=== PATIENT | female | born 1955 | race Hispanic/Latino ===

== ENCOUNTER 2018-08-02 07:18 | Observation (INO) | payer OTHER ==
[~2018-08-02] VITALS: Ht 160 cm; Wt 80.6 kg
[~2018-08-02 07:18] MED LIST: ALPR0.255 PO; DILT120T15 PO; IMIP10TA5 PO; LOSA1TAB42 PO; SIMV10TA6 PO
[2018-08-02] MEDS ORDERED: ONDANSETRON HCL 4 MG/2 ML VIAL ONE (07:44)
[2018-08-02 07:52] LABS: BASOPHILS % (AUTO) 0.2 % (0.0-5.0); EOSINOPHILS % (AUTO) 3.7 % (0.0-8.0); HEMATOCRIT 31.7 % (36-48); LYMPHOCYTES % (AUTO) 43.4 % (21.0-51.0); MEAN CORPUSCULAR HEMOGLOBIN 27.6 pg (27.0-33.0); MEAN CORPUSCULAR HGB CONC 33.2 g/dL (32.0-36.0); MONOCYTES % (AUTO) 43.3 % (3.0-13.0); NEUTROPHILS % (AUTO) 9.4 % (40.0-77.0); NUCLEATED RED BLOOD CELLS 0.1 % (0.0-0.19); PLATELET COUNT (AUTO) 288 K/uL (130-400); RED BLOOD CELL COUNT(AUTO) 3.82 MIL/uL (4.00-5.50); RED CELL DISTRIBUTION WIDTH 14.4 % (11.0-15.5)
[2018-08-02 08:04] LABS: POTASSIUM 3.1 mmol/L (3.5-5.1)
[2018-08-02 08:08] LABS: ALBUMIN 3.1 g/dL (3.5-5.0); BILIRUBIN,DIRECT 0.2 mg/dL (0.0-0.3); BILIRUBIN,TOTAL 0.5 mg/dL (0.2-1.0); TOTAL PROTEIN, SERUM 6.5 g/dL (6.0-8.3)
[2018-08-02 08:26] LABS: RAPID GROUP A STREP NEGATIVE (NEGATIVE)
[2018-08-02 10:29] LABS: APPEARANCE,URINE SL CLOUDY (CLEAR); BILIRUBIN,URINE NEGATIVE (NEGATIVE); COLOR,URINE YELLOW (YELLOW); GLUCOSE, URINE (UA) NEGATIVE (NEGATIVE); KETONES,URINE NEGATIVE (NEGATIVE); LEUKOCYTE ESTERASE ,URINE SMALL (NEGATIVE); NITRATE,URINE POSITIVE (NEGATIVE); OCCULT BLOOD,URINE NEGATIVE (NEGATIVE); PH,URINE 5.5 (5.0-8.0); PROTEIN,URINE NEGATIVE (NEGATIVE); UROBILINOGEN,URINE 0.2 mg/dL (0.2-1.0)
[2018-08-02 10:34] LABS: BACTERIA,URINE Many /HPF (None Seen); RBC,URINE 0-1 /HPF (0-1); SQUAMOUS EPITHELIAL CELL,UR Rare /HPF (0-2); TRANSITIONAL EPI CELLS,URINE Rare /HPF (None Seen)
[2018-08-02] MEDS ORDERED: ZOSYN 3.375GM+NS 50ML 50 ML IV ONE (11:45)
[2018-08-02 14:41] VITALS: BP 121/58
[2018-08-02] MEDS ORDERED: ERGO500014 PO (16:29)
[2018-08-02] MEDS ORDERED: ATOR20TA65 PO (16:29)
[2018-08-02] MEDS ORDERED: LEVO50 PO (16:29)
[2018-08-02 16:55] VITALS: BP 110/52
[2018-08-02] MEDS ORDERED: POTASSIUM CHLORIDE 20MEQ/100ML 100 ML IV PRN (17:00)
[2018-08-02] MEDS ORDERED: LIDOCAINE HCL-MPF 1% 2ML VIAL IVP PRN (17:00)
[2018-08-02] MEDS ORDERED: POTASSIUM CHLORIDE 10% ELIXIR 20 MEQ/15 ML UDCUP PO PRN (17:00)
[2018-08-02] MEDS: DILTIAZEM HCL 120 MG CAP.SR.24H PO SCH (17:00)
[2018-08-02] MEDS ORDERED: SODIUM CHLORIDE 0.9% 1000ML 1,000 ML IV SCH (17:15)
[2018-08-02] MEDS ORDERED: ONDANSETRON HCL 4 MG/2 ML VIAL IVP PRN (17:30)
[2018-08-02] MEDS: SODIUM CHLORIDE 0.9% 1000ML 1,000 ML IV SCH ×2 (17:30→22:04)
[2018-08-02] MEDS ORDERED: DIPHENOXYLATE HCL/ATROPINE 2.5/0.025 MG TAB PO PRN (18:30)
[2018-08-02] MEDS ORDERED: HYDROCODONE/ACETAMINOPHEN 5/325 MG TAB PO PRN (18:30)
[2018-08-02] MEDS ORDERED: PHARMACY COMMUNICATION MISC SCH (18:30)
[2018-08-02 19:54] VITALS: BP 126/55
[2018-08-02] MEDS: MAG HYDROX/AL HYDROX/SIMETH 30 ML, LIDOCAINE HCL 2% VISCOUS 30 ML, DIPHENHYDRAMINE HCL ... PO SCH ×3 (21:52)
[2018-08-02] MEDS: POTASSIUM CHLORIDE 20 MEQ ERTAB PO PRN (21:53)
[2018-08-02] MEDS: AMITRIPTYLINE HCL 10 MG TABLET PO SCH (21:53)
[2018-08-02] MEDS: ALPRAZOLAM 0.25 MG TABLET PO SCH (21:54)
[2018-08-02 23:14] VITALS: BP 114/60
[2018-08-03] MEDS: POTASSIUM CHLORIDE 20 MEQ ERTAB PO PRN (02:22)
[2018-08-03 03:51] VITALS: BP 101/51
[2018-08-03 04:49] LABS: HEMATOCRIT 30.2 % (36-48); MEAN CORPUSCULAR HEMOGLOBIN 26.8 pg (27.0-33.0); MEAN CORPUSCULAR HGB CONC 32.7 g/dL (32.0-36.0); MEAN CORPUSCULAR VOLUME 81.9 fL (79-99); NUCLEATED RED BLOOD CELLS 0.3 % (0.0-0.19); PLATELET COUNT (AUTO) 265 K/uL (130-400); RED BLOOD CELL COUNT(AUTO) 3.69 MIL/uL (4.00-5.50); RED CELL DISTRIBUTION WIDTH 14.2 % (11.0-15.5); WHITE BLOOD COUNT (AUTO) 5.8 K/uL (4.8-10.8)
[2018-08-03 05:02] LABS: ALBUMIN 2.4 g/dL (3.5-5.0); BILIRUBIN,TOTAL 0.6 mg/dL (0.2-1.0); CREATININE 0.9 mg/dL (0.5-1.5); MAGNESIUM 1.6 mg/dL (1.80-2.40); POTASSIUM 4.1 mmol/L (3.5-5.1); TOTAL PROTEIN, SERUM 5.7 g/dL (6.0-8.3)
[2018-08-03] MEDS ORDERED: MAGNESIUM 2GM PREMIX 50ML 50 ML IV PRN (06:30)
[2018-08-03] MEDS ORDERED: MAGNESIUM 2GM PREMIX 50ML 50 ML IV ONE (06:40)
[2018-08-03] MEDS: LEVOTHYROXINE 50 MCG TABLET PO SCH (06:42)
[2018-08-03 08:00] VITALS: BP 104/55
[2018-08-03] MEDS: ALPRAZOLAM 0.25 MG TABLET PO SCH ×2 (09:34→21:31)
[2018-08-03] MEDS: METRONIDAZOLE 500 MG TABLET PO SCH ×3 (09:34→20:24)
[2018-08-03] MEDS: ATORVASTATIN CALCIUM 20 MG TABLET PO SCH (09:34)
[2018-08-03] MEDS: AMITRIPTYLINE HCL 10 MG TABLET PO SCH ×2 (09:34→21:32)
[2018-08-03] MEDS: SODIUM CHLORIDE 0.9% 1000ML 1,000 ML IV SCH ×3 (09:41→23:30)
[2018-08-03 12:00] VITALS: BP 109/59
[2018-08-03 16:00] VITALS: BP 101/54
[2018-08-03 20:00] VITALS: BP 102/60
[2018-08-03] MEDS: MAG HYDROX/AL HYDROX/SIMETH 30 ML, LIDOCAINE HCL 2% VISCOUS 30 ML, DIPHENHYDRAMINE HCL ... PO SCH ×6 (20:24→21:32)
[2018-08-03] MEDS: DILTIAZEM HCL 120 MG CAP.SR.24H PO SCH (20:25)
[2018-08-04] VITALS: BP 97/49
[2018-08-04 04:00] VITALS: BP 97/55
[2018-08-04 04:48] LABS: HEMATOCRIT 26.8 % (36-48); MEAN CORPUSCULAR HEMOGLOBIN 27.1 pg (27.0-33.0); MEAN CORPUSCULAR HGB CONC 32.6 g/dL (32.0-36.0); MEAN CORPUSCULAR VOLUME 83.1 fL (79-99); NUCLEATED RED BLOOD CELLS 0.1 % (0.0-0.19); PLATELET COUNT (AUTO) 278 K/uL (130-400); RED BLOOD CELL COUNT(AUTO) 3.23 MIL/uL (4.00-5.50); RED CELL DISTRIBUTION WIDTH 14.7 % (11.0-15.5); WHITE BLOOD COUNT (AUTO) 14.8 K/uL (4.8-10.8)
[2018-08-04 05:00] LABS: CREATININE 0.8 mg/dL (0.5-1.5); MAGNESIUM 2.1 mg/dL (1.80-2.40); POTASSIUM 3.7 mmol/L (3.5-5.1)
[2018-08-04] MEDS: SODIUM CHLORIDE 0.9% 1000ML 1,000 ML IV SCH (05:02)
[2018-08-04] MEDS: LEVOTHYROXINE 50 MCG TABLET PO SCH (06:09)
[2018-08-04 07:00] VITALS: BP 106/62
[2018-08-04] MEDS ORDERED: LEVOFLOXACIN 500 MG/D5W 100 ML 100 ML IV SCH (09:00)
[2018-08-04] MEDS: ALPRAZOLAM 0.25 MG TABLET PO SCH (10:15)
[2018-08-04] MEDS: AMITRIPTYLINE HCL 10 MG TABLET PO SCH (10:15)
[2018-08-04] MEDS: METRONIDAZOLE 500 MG TABLET PO SCH (10:15)
[2018-08-04] MEDS: ATORVASTATIN CALCIUM 20 MG TABLET PO SCH (10:15)
[2018-08-04] MEDS: MAG HYDROX/AL HYDROX/SIMETH 30 ML, LIDOCAINE HCL 2% VISCOUS 30 ML, DIPHENHYDRAMINE HCL ... PO SCH ×3 (10:16)
[2018-08-04 11:00] VITALS: BP 113/60
[2018-08-09] MEDS ORDERED: ERGOCALCIFEROL (VITAMIN D2) 50,000 UNIT CAPSULE PO SCH (09:00)
== END 2018-08-04 16:30 | disposition home or self-care (01) ==
LOC: EDH 07:18 → EDHIP 11:08 → 3BH 13:55
PROVIDERS: ADMIT Family Medicine; ATTEND Family Medicine
DX: K12.1 Other forms of stomatitis (principal); E11.9 Type 2 diabetes mellitus without complications; M81.0 Age-related osteoporosis without current pathological fracture; E86.0 Dehydration; N39.0 Urinary tract infection, site not specified; E87.6 Hypokalemia; E83.42 Hypomagnesemia; C79.51 Secondary malignant neoplasm of bone; C79.89 Secondary malignant neoplasm of other specified sites; D64.81 Anemia due to antineoplastic chemotherapy; D70.1 Agranulocytosis secondary to cancer chemotherapy; K52.1 Toxic gastroenteritis and colitis; T45.1X5A Adverse effect of antineoplastic and immunosuppressive drugs, initial encounter; B96.89 Other specified bacterial agents as the cause of diseases classified elsewhere; Z80.3 Family history of malignant neoplasm of breast; Z96.649 Presence of unspecified artificial hip joint
CPT/HCPCS: 36415 ×3; 71045; 80048 ×2; 80053; 80076; 81001; 83690; 83735 ×2; 84100; 84484; 85025; 85027 ×2; 87040 ×2; 87046; 87077 ×2; 87088; 87177; 87186 ×2; 87493; 87804 ×2; 87880; 93005; 96361 ×3; 96365; 96366 ×2; 96368; 99285; A4510; G0378 ×53; J1956; J2405; J2543; J3475; J7030 ×2

== ENCOUNTER 2018-09-22 08:02 | Inpatient (IN) | payer MEDICARE, OTHER | END 2018-10-01 17:20 | LOC: EDH 08:02 → 2DH 09-26 16:34 → EDHIP 08:30 → 2CH 13:50 → EDHIP 13:50 → 2CH 13:50 | DX: A41.9 Sepsis, unspecified organism (principal); J18.9 Pneumonia, unspecified organism; J96.01 Acute respiratory failure with hypoxia; I13.0 Hypertensive heart and chronic kidney disease with heart failure and stage 1 through stage 4 chronic kidney disease, or unspecified chronic kidney disease; I50.32 Chronic diastolic (congestive) heart failure; R65.20 Severe sepsis without septic shock; Y95 Nosocomial condition; I10 Essential (primary) hypertension; N18.9 Chronic kidney disease, unspecified; E11.22 Type 2 diabetes mellitus with diabetic chronic kidney disease ==

== ENCOUNTER 2023-06-02 05:58 | Inpatient (IN) | payer MEDICARE ==
[2023-05-27 10:23] LABS: BASOPHILS # (AUTO) 0.05 K/uL (0.00-0.20); BASOPHILS % (AUTO) 0.7 % (0.0-5.0); EOSINOPHILS # (AUTO) 0.51 K/uL (0.00-0.70); EOSINOPHILS % (AUTO) 6.8 % (0.0-8.0); HEMATOCRIT 39.1 % (36-48); IMMATURE GRANULOCYTE ABSOLUTE 0.03 K/uL (0-1); LYMPHOCYTES % (AUTO) 26.6 % (21.0-51.0); MEAN CORPUSCULAR HEMOGLOBIN 29.8 pg (27.0-33.0); MEAN CORPUSCULAR HGB CONC 32.7 g/dL (32.0-36.0); MEAN CORPUSCULAR VOLUME 90.9 fL (79-99); MONOCYTES # (AUTO) 0.5 K/uL (0.1-1.0); MONOCYTES % (AUTO) 6.7 % (3.0-13.0); NEUTROPHILS # (AUTO) 4.4 K/uL (1.8-7.7); NEUTROPHILS % (AUTO) 58.8 % (40.0-77.0); PLATELET COUNT (AUTO) 332 K/uL (130-400); RED CELL DISTRIBUTION WIDTH 14.6 % (11.0-15.5); WHITE BLOOD COUNT (AUTO) 7.5 K/uL (4.8-10.8)
[2023-05-27 10:27] VITALS: BP 133/65; PULSE 93; RESP 18
[2023-05-27 10:38] LABS: ALBUMIN 3.4 g/dL (3.5-5.0); BILIRUBIN,TOTAL 0.5 mg/dL (0.2-1.0); CREATININE 0.7 mg/dL (0.5-1.5); INR < 0.93 (0.85-1.15); POTASSIUM 3.4 mmol/L (3.5-5.1); PROTHROMBIN TIME 10.6 SEC (9.6-11.6); TOTAL PROTEIN, SERUM 7.4 g/dL (6.0-8.3)
[2023-05-27 10:39] LABS: PARTIAL THROMBOPLASTIN TIME 28.9 SEC (26.3-35.5)
[~2023-06-02] VITALS: Ht 162.6 cm; Wt 86.4 kg
[2023-06-02] VITALS (21 sets, daily range): BP systolic 124–168; BP diastolic 61–94; PULSE 64–98; RESP 13–20; O2SAT 99
[~2023-06-02 05:58] MED LIST changes: +AMLO-257 PO; -DILT120T15 PO; +DOXY-252 PO; +LEVO50 PO; +LINA72CA PO; +LISI1TAB51 PO; -LOSA1TAB42 PO; -SIMV10TA6 PO
[2023-06-02] MEDS ORDERED: 0.9%NACL 1000ML 1,000 ML IV ONE (06:14)
[2023-06-02] MEDS: MEROPENEM 1 GM VIAL ONE ×2 (06:40→08:27)
[2023-06-02] MEDS ORDERED: LIDOCAINE HCL 1% 20 ML VIAL ONE (06:47)
[2023-06-02] MEDS ORDERED: BUPIVACAINE/PF 0.5% 30ML VIAL ONE (06:47)
[2023-06-02] MEDS ORDERED: FAMOTIDINE 20MG VIAL IV ONE (07:13)
[2023-06-02] MEDS ORDERED: HYDROMORPHONE 1 MG INJ ONE (07:13)
[2023-06-02] MEDS ORDERED: LIDOCAINE PF 100MG/5ML (2%) SYRINGE 5ML ONE (07:35)
[2023-06-02] MEDS ORDERED: SUCCINYLCHOLINE 200MG/10ML SYR ONE (07:35)
[2023-06-02] MEDS ORDERED: FENTANYL CITRATE PF 50 MCG/1 ML 2ML VIAL ONE (07:36)
[2023-06-02] MEDS ORDERED: GLYCOPYRROLATE 1 MG/5 ML SYRINGE ONE (07:36)
[2023-06-02] MEDS ORDERED: PROPOFOL 10 MG/ML 20ML VIAL IV ONE (07:36)
[2023-06-02] MEDS ORDERED: ROCURONIUM 10MG/1ML SYR 10 MG/ML ML ONE ×2 (07:36→12:09)
[2023-06-02] MEDS ORDERED: MIDAZOLAM HCL 1 MG/ML 2ML VIAL ONE (07:39)
[2023-06-02] MEDS ORDERED: INDOCYANINE GREEN 25 MG VIAL IJ ONE (07:41)
[2023-06-02] MEDS ORDERED: ONDANSETRON 4MG INJ ONE ×2 (08:47→12:26)
[2023-06-02] MEDS ORDERED: ARTIFICIAL TEARS 3.5 GM OINTMENT ONE (08:49)
[2023-06-02] MEDS ORDERED: NEOSTIGMINE 5MG/5ML SYR IV ONE (12:09)
[2023-06-02] MEDS ORDERED: HYDROMORPHONE 0.5 MG SYG (0.5MG/0.5ML) IVP PRN (13:00)
[2023-06-02] MEDS: ACETAMINOPHEN 500 MG TABLET PO SCH ×2 (13:00→21:07)
[2023-06-02] MEDS: LACTATED RINGERS 1000ML 1,000 ML IV SCH (14:00)
[2023-06-02] MEDS: GABAPENTIN 100 MG CAPSULE PO SCH ×2 (14:22→21:04)
[2023-06-02] MEDS: OXYCODONE HCL 20 MG/ML ORAL.CONC 0.25ML PO PRN ×2 (16:08→23:28)
[2023-06-02] MEDS: ONDANSETRON 4MG INJ IVP PRN ×2 (16:12→21:14)
[2023-06-02] MEDS: INSULIN HUMULIN R 100 UNIT/ML 3ML SQ SCH (23:55)
[2023-06-03] VITALS (7 sets, daily range): BP systolic 116–152; BP diastolic 66–86; PULSE 81–103; RESP 18–20; O2SAT 97
[2023-06-03] MEDS: ACETAMINOPHEN 500 MG TABLET PO SCH ×3 (05:27→21:35)
[2023-06-03] MEDS: INSULIN HUMULIN R 100 UNIT/ML 3ML SQ SCH ×2 (06:00→21:00)
[2023-06-03 07:53] LABS: BASOPHILS # (AUTO) 0.01 K/uL (0.00-0.20); BASOPHILS % (AUTO) 0.2 % (0.0-5.0); EOSINOPHILS # (AUTO) 0.16 K/uL (0.00-0.70); EOSINOPHILS % (AUTO) 2.6 % (0.0-8.0); IMMATURE GRANULOCYTE ABSOLUTE 0.02 K/uL (0-1); LYMPHOCYTES # (AUTO) 1.5 K/uL (1.0-4.8); LYMPHOCYTES % (AUTO) 24.1 % (21.0-51.0); MEAN CORPUSCULAR HEMOGLOBIN 29.5 pg (27.0-33.0); MEAN CORPUSCULAR HGB CONC 32.3 g/dL (32.0-36.0); MEAN CORPUSCULAR VOLUME 91.4 fL (79-99); MONOCYTES # (AUTO) 0.5 K/uL (0.1-1.0); MONOCYTES % (AUTO) 8.2 % (3.0-13.0); NEUTROPHILS # (AUTO) 3.9 K/uL (1.8-7.7); NEUTROPHILS % (AUTO) 64.6 % (40.0-77.0); PLATELET COUNT (AUTO) 301 K/uL (130-400); RED BLOOD CELL COUNT(AUTO) 3.83 MIL/uL (4.00-5.50); RED CELL DISTRIBUTION WIDTH 15.2 % (11.0-15.5); WHITE BLOOD COUNT (AUTO) 6.1 K/uL (4.8-10.8)
[2023-06-03 08:06] LABS: CREATININE 0.7 mg/dL (0.5-1.5); MAGNESIUM 1.6 mg/dL (1.80-2.40); PHOSPHORUS 2.1 mg/dL (2.5-4.9)
[2023-06-03] MEDS: FAMOTIDINE 20MG VIAL IV SCH ×2 (08:27→21:34)
[2023-06-03] MEDS: HEPARIN 5,000 UNIT VIAL SQ SCH ×2 (08:29→16:53)
[2023-06-03] MEDS: GABAPENTIN 100 MG CAPSULE PO SCH ×3 (08:30→21:33)
[2023-06-03 08:33] LABS: POTASSIUM 2.9 mmol/L (3.5-5.1)
[2023-06-03] MEDS: ALPRAZOLAM 0.25 MG TABLET PO SCH ×2 (08:34→21:34)
[2023-06-03] MEDS: LEVOTHYROXINE 50 MCG TABLET PO SCH (09:10)
[2023-06-03] MEDS: AMITRIPTYLINE 25 MG TABLET PO SCH ×2 (09:18→21:33)
[2023-06-03] MEDS ORDERED: POTASSIUM CHLORIDE 10MEQ/100ML 100 ML IV PRN (11:00)
[2023-06-03] MEDS ORDERED: POTASSIUM CHLORIDE 10% ELIXIR 20 MEQ/15 ML UDCUP PO PRN ×2 (11:00)
[2023-06-03] MEDS: POTASSIUM CHLORIDE 10 MEQ/TAB.SR PO PRN ×4 (13:18→19:37)
[2023-06-04] MEDS: HEPARIN 5,000 UNIT VIAL SQ SCH ×2 (00:12→08:22)
[2023-06-04] MEDS: LACTATED RINGERS 1000ML 1,000 ML IV SCH (02:52)
[2023-06-04 03:43] VITALS: BP 122/76; PULSE 97; RESP 18
[2023-06-04 04:41] LABS: BASOPHILS # (AUTO) 0.03 K/uL (0.00-0.20); BASOPHILS % (AUTO) 0.5 % (0.0-5.0); EOSINOPHILS # (AUTO) 0.42 K/uL (0.00-0.70); EOSINOPHILS % (AUTO) 6.3 % (0.0-8.0); HEMATOCRIT 36.8 % (36-48); IMMATURE GRANULOCYTE ABSOLUTE 0.03 K/uL (0-1); LYMPHOCYTES # (AUTO) 1.4 K/uL (1.0-4.8); LYMPHOCYTES % (AUTO) 20.8 % (21.0-51.0); MEAN CORPUSCULAR HEMOGLOBIN 29.7 pg (27.0-33.0); MEAN CORPUSCULAR HGB CONC 32.9 g/dL (32.0-36.0); MEAN CORPUSCULAR VOLUME 90.2 fL (79-99); MONOCYTES # (AUTO) 0.6 K/uL (0.1-1.0); MONOCYTES % (AUTO) 8.3 % (3.0-13.0); NEUTROPHILS # (AUTO) 4.2 K/uL (1.8-7.7); NEUTROPHILS % (AUTO) 63.6 % (40.0-77.0); PLATELET COUNT (AUTO) 302 K/uL (130-400); RED BLOOD CELL COUNT(AUTO) 4.08 MIL/uL (4.00-5.50); RED CELL DISTRIBUTION WIDTH 15.1 % (11.0-15.5); WHITE BLOOD COUNT (AUTO) 6.6 K/uL (4.8-10.8)
[2023-06-04 04:58] LABS: CREATININE 0.8 mg/dL (0.5-1.5); MAGNESIUM 1.6 mg/dL (1.80-2.40); PHOSPHORUS 2.3 mg/dL (2.5-4.9); POTASSIUM 3.6 mmol/L (3.5-5.1)
[2023-06-04] MEDS: ACETAMINOPHEN 500 MG TABLET PO SCH (05:49)
[2023-06-04] MEDS: INSULIN HUMULIN R 100 UNIT/ML 3ML SQ SCH (06:00)
[2023-06-04] MEDS: LEVOTHYROXINE 50 MCG TABLET PO SCH (06:11)
[2023-06-04 07:16] VITALS: BP 112/66; PULSE 91; RESP 18
[2023-06-04 08:15] VITALS: O2SAT 97
[2023-06-04] MEDS: ALPRAZOLAM 0.25 MG TABLET PO SCH (08:23)
[2023-06-04] MEDS: AMITRIPTYLINE 25 MG TABLET PO SCH (08:23)
[2023-06-04] MEDS: GABAPENTIN 100 MG CAPSULE PO SCH (08:24)
[2023-06-04] MEDS: FAMOTIDINE 20MG VIAL IV SCH (08:24)
[2023-06-04 12:39] VITALS: BP 125/84; PULSE 107; RESP 18
== END 2023-06-04 12:45 | disposition home or self-care (01) | DRG 331 ==
LOC: DAHIP 05:58 → WSH 13:55
PROVIDERS: ADMIT Surgery; ATTEND Surgery
PROC: 0DJD8ZZ Inspection of Lower Intestinal Tract, Via Natural or Artificial Opening Endoscopic (ICD-10-PCS; 2023-06-02)
PROC: 0DTF4ZZ Resection of Right Large Intestine, Percutaneous Endoscopic Approach (ICD-10-PCS; principal; 2023-06-02 08:27)
PROC: 8E0W4CZ Robotic Assisted Procedure of Trunk Region, Percutaneous Endoscopic Approach (ICD-10-PCS; 2023-06-02 08:27)
DX: C18.3 Malignant neoplasm of hepatic flexure (principal); E11.9 Type 2 diabetes mellitus without complications; I10 Essential (primary) hypertension; Z96.649 Presence of unspecified artificial hip joint; Z85.038 Personal history of other malignant neoplasm of large intestine; Z85.819 Personal history of malignant neoplasm of unspecified site of lip, oral cavity, and pharynx
CPT/HCPCS: 36415; 45378; 80048; 80053; 82948; 83735; 84100; 85025; 85610; 85730; 86850; 86900; 86901; 88307; 93005; 97039; A4344; G0378; J0330; J1170; J1644; J2001; J2185; J2250; J2405; J2704; J2710; J3010; J3480; J3490; J7030; J7120; A4215; A4221; A4222; A4223; A4600; A4649; A4663; A6260; C1769; G0168; L0625

== ENCOUNTER → 2024-01-16 | Outpatient (CLI) | payer MEDICARE ==
[~2024-01-16] MED LIST changes: -DOXY-252 PO
== END | disposition home or self-care (01) ==
LOC: SHCH 07:32
PROVIDERS: ATTEND Student in an Organized Health Care Education/Training Program
DX: R06.02 Shortness of breath (principal); I10 Essential (primary) hypertension; E11.9 Type 2 diabetes mellitus without complications
CPT/HCPCS: 93306